=== PATIENT | male | born 1995 | race Caucasian/White ===

== ENCOUNTER 2021-05-09 22:04 | Emergency (ER) | payer BC, OTHER ==
[2021-05-09 22:43] LABS: AMPHETAMINES,URINE NEGATIVE (NEGATIVE); BARBITURATES,URINE NEGATIVE (NEGATIVE); BENZODIAZEPINE,URINE NEGATIVE (NEGATIVE); MDMA (ECSTASY), URINE NEGATIVE (NEGATIVE); METHADONE,URINE NEGATIVE (NEGATIVE); METHAMPHETAMINES,URINE NEGATIVE (NEGATIVE); OPIATES,URINE NEGATIVE (NEGATIVE); OXYCODONE,URINE NEGATIVE (NEGATIVE); PHENCYCLIDINE,URINE NEGATIVE (NEGATIVE); TCA,URINE NEGATIVE (NEGATIVE)
[2021-05-09 22:50] LABS: CHLORIDE,CL 102 mEq/L (98-106); SODIUM,NA 141 mEq/L (136-145)
== END 2021-05-10 | disposition home or self-care (01) ==
LOC: CC.ED 22:04
DX: M25.512 Pain in left shoulder (principal); F12.10 Cannabis abuse, uncomplicated; G93.9 Disorder of brain, unspecified
CPT/HCPCS: 36415; 70450; 71046; 80053; 80305-QW; 85025; 99283; 99284-25

== ENCOUNTER 2022-08-31 08:32 | Emergency (ER) | payer OTHER, BC ==
[2022-08-31] MEDS ORDERED: Diphtheria,Pertussis(Acell),Tetanus Vaccine 0.5 ML Syringe IM ONE (09:32)
== END 2022-08-31 09:45 | disposition home or self-care (01) ==
LOC: CC.ED 08:32
DX: S61.412A Laceration without foreign body of left hand, initial encounter (principal); Z23 Encounter for immunization; W26.8XXA Contact with other sharp object(s), not elsewhere classified, initial encounter; Y99.0 Civilian activity done for income or pay
CPT/HCPCS: 12002; 90471; 90715; 99282-25; 99283